=== PATIENT | female | born 1985 | race Caucasian/White ===

== ENCOUNTER 2020-06-10 12:15 | Emergency (ER) | payer MEDICAID ==
[~2020-06-10] VITALS: Ht 165.1 cm; Wt 120.2 kg
[2020-06-10 12:37] VITALS: Ht 165.1 cm; Wt 120.2 kg
[2020-06-10 13:53] VITALS: BP 159/84
== END 2020-06-10 13:53 | disposition home or self-care (01) ==
LOC: ED 12:15
DX: H66.92 Otitis media, unspecified, left ear (principal); Z88.8 Allergy status to other drugs, medicaments and biological substances

== ENCOUNTER 2020-11-30 00:04 | Emergency (ER) | payer MEDICAID ==
[~2020-11-30] VITALS: Ht 167.6 cm; Wt 116.6 kg
[2020-11-30 00:14] VITALS: Ht 167.6 cm; Wt 116.6 kg
[2020-11-30 01:18] LABS: BASOPHIL % 0.4 % (0.2-1.3); PLATELET COUNT 259 x10^3mcL (179-408)
[2020-11-30 01:22] LABS: RED CELL DISTRIBUTION WIDTH 17.4 % (12.3-17.7)
[2020-11-30 01:23] LABS: rbc morphology (normal/abnorm) NORMAL (NORMAL)
[2020-11-30 01:40] LABS: CALCIUM 9.1 mg/dL (8.5-10.1); CARBON DIOXIDE 24.9 mmol/L (21-32); CHLORIDE SERUM 103 mmol/L (98-107); CREATININE SERUM 0.9 mg/dL (0.6-1.0); GFR1 > 60 mL/min; GLUCOSE SERUM 107 mg/dL (74-106); POTASSIUM SERUM 4.1 mmol/L (3.5-5.1); SODIUM SERUM 136 mmol/L (136-145)
[2020-11-30 01:44] LABS: ALKALINE PHOSPHATASE 97 U/L (46-116); ALT/SGPT 27 U/L (14-59); AST/SGOT 16 U/L (15-37); BILIRUBIN TOTAL 0.19 mg/dL (0.20-1.00); LIPASE 139 IU/L (73-393)
[2020-11-30 01:45] LABS: ALBUMIN 3.3 g/dL (3.4-5.0)
[2020-11-30 03:48] LABS: microscopic required? YES; urine erythrocyte NEGATIVE (NEGATIVE)
[2020-11-30] MEDS ORDERED: ACETAMINOPHEN-H1 TA1 PO (04:36)
[2020-11-30] MEDS ORDERED: ZOFRAN4 M3 PO (04:36)
[2020-11-30] MEDS ORDERED: TYLENOL325 M1 PO (04:36)
[2020-11-30 05:12] VITALS: BP 107/66
== END 2020-11-30 05:12 | disposition home or self-care (01) ==
LOC: ED 00:04
PROVIDERS: Emergency Medicine
DX: K80.20 Calculus of gallbladder without cholecystitis without obstruction (principal); K80.50 Calculus of bile duct without cholangitis or cholecystitis without obstruction; D64.9 Anemia, unspecified
CPT/HCPCS: J2270; J2405; J7030